=== PATIENT | male | born 1960 | race Caucasian/White ===

== ENCOUNTER 2023-11-01 06:20 | Day surgery (SDC) | payer BC, SELFPAY ==
[2023-10-17 09:22] VITALS: BMI 25.0
[2023-10-17 10:00] LABS: Hematocrit 48.3 % (39.0-52.0); Hemoglobin 16.8 g/dL (13.0-18.0); Mean Corp Hgb Conc. 34.8 g/dL (33.0-37.0); Mean Corpuscular Hgb 34.4 pg (27.0-31.0); Mean Platelet Volume 10.8 fL (7.4-10.4); Platelet Count 190 10^3/uL (130-400); Red Blood Cell Count 4.88 10^6/uL (4.70-6.10); White Blood Cell Count 10.8 10^3/uL (4.8-10.8)
[2023-10-17 10:09] LABS: Blood Urea Nitrogen 18 mg/dl (9-20); Calcium 9.4 mg/dl (8.4-10.2); Carbon Dioxide 27 mmol/L (22-30); Chloride 108 mmol/L (98-107); Estimated Creatinine Clearance 109 ml/min; Glucose 77 mg/dl (70-99); Potassium 4.7 mmol/L (3.5-5.1); Sodium 141 mmol/L (135-145); eGFR > 60.00
[2023-10-17 10:15] LABS: INR 0.94; PT 12.8 Sec (11.4-14.6)
[2023-10-17 10:16] LABS: APTT 30.2 Sec (23.4-35.0)
[2023-10-17 10:22] LABS: Urine Albumin Negative (Neg - Trace); Urine Bilirubin Negative (Negative); Urine Character Clear (Clear); Urine Color Yellow; Urine Glucose Negative (Negative); Urine Ketone Negative (Negative); Urine Leukocyte Negative (Negative); Urine Nitrite Negative (Negative); Urine Occult Blood Negative (Negative); Urine Specific Gravity 1.015 (<1.030); Urine Urobilinogen Negative (Neg - 1+)
[2023-11-01] VITALS (9 sets, daily range): BP systolic 129–159; BP diastolic 79–91; BMI 25.0
[2023-11-01] MEDS: CYSVIEW KIT 100 MG INTRAVES (07:45)
[2023-11-01] MEDS: NORMOSOL-R 1000 IV (08:05)
[2023-11-01] MEDS: Pyridium 200 MG PO (10:16)
--- NOTE | 2023-11-01 11:18 | PTCARENOTE ---
Smoking cessation education done with patient. Patient seems willing to quit but is not ready quite yet. He stated that he needed more time and patient encouraged to quit. Will monitor patient.
== END 2023-11-01 11:16 | disposition home or self-care (01) ==
LOC: SDS 06:20
PROVIDERS: ATTENDING PHYSICIAN Specialist; FAMILY PHYSICIAN Family Medicine; OTHER PHYSICIAN Nurse Practitioner Adult Health
DX: R31.0 Gross hematuria (principal); Z85.51 Personal history of malignant neoplasm of bladder
CPT/HCPCS: 52000; 36415; 80048; 81003; 85027; 85610; 85730; 93005; A9589

== ENCOUNTER → 2023-12-21 11:23 | Outpatient (REF) | payer BC, SELFPAY ==
[2023-12-21 13:12] LABS: Urine Albumin Negative (Neg - Trace); Urine Bilirubin Negative (Negative); Urine Character Clear (Clear); Urine Color Yellow; Urine Glucose Negative (Negative); Urine Ketone Negative (Negative); Urine Leukocyte Trace (Negative); Urine Nitrite Negative (Negative); Urine Occult Blood Negative (Negative); Urine Specific Gravity 1.015 (<1.030); Urine Urobilinogen Negative (Neg - 1+)
[2023-12-21 14:20] LABS: Urine Bacteria Few (Negative); Urine Red Blood Cell 0-2 /HPF (0-2); Urine White Cell 0-2 /HPF (0-5)
== END ==
LOC: REG 11:23
PROVIDERS: ATTENDING PHYSICIAN Specialist; FAMILY PHYSICIAN Nurse Practitioner Adult Health
DX: N39.0 Urinary tract infection, site not specified (principal)
CPT/HCPCS: 81003; 81015; 87086

== ENCOUNTER → 2023-12-27 10:51 | Outpatient (REF) | payer BC, SELFPAY | LOC: HWRAD 10:51 | PROVIDERS: ATTENDING PHYSICIAN Physician Assistant Medical | DX: Z87.891 Personal history of nicotine dependence (principal); Z72.0 Tobacco use | CPT/HCPCS: 71271 ==

== ENCOUNTER → 2024-10-02 08:36 | Outpatient (REF) | payer MEDICARE, BC, SELFPAY ==
[2024-10-02 10:37] LABS: Hematocrit 49.1 % (39.0-52.0); Hemoglobin 17.1 g/dL (13.0-18.0); Mean Corp Hgb Conc. 34.8 g/dL (33.0-37.0); Mean Corpuscular Hgb 34.5 pg (27.0-31.0); Mean Corpuscular Volume 99.2 fL (80.0-94.0); Mean Platelet Volume 11.1 fL (7.4-10.4); Platelet Count 200 10^3/uL (130-400); Red Blood Cell Count 4.95 10^6/uL (4.70-6.10); Red Cell Dist. Width 13.2 % (11.5-14.5); White Blood Cell Count 9.3 10^3/uL (4.8-10.8)
[2024-10-02 12:08] LABS: Blood Urea Nitrogen 16 mg/dl (9-20); Calcium 9.5 mg/dl (8.4-10.2); Carbon Dioxide 28 mmol/L (22-30); Chloride 103 mmol/L (98-107); Glucose 81 mg/dl (70-99); Potassium 4.8 mmol/L (3.5-5.1); Sodium 139 mmol/L (135-145); eGFR > 60.00
== END ==
LOC: SDSPAT 08:36
PROVIDERS: ATTENDING PHYSICIAN Specialist; FAMILY PHYSICIAN Family Medicine
DX: C67.9 Malignant neoplasm of bladder, unspecified (principal); Z01.818 Encounter for other preprocedural examination
CPT/HCPCS: 36415; 80048; 85027; 93005

== ENCOUNTER 2024-10-09 06:50 | Day surgery (SDC) | payer MEDICARE, BC, SELFPAY ==
[2024-10-02 13:32] VITALS: BMI 23.8
--- NOTE | 2024-10-02 14:51 | PTCARENOTE ---
Abn ECG, Dr Palomares notified, no additional interventions requested.
[2024-10-09] VITALS (9 sets, daily range): BP systolic 121–145; BP diastolic 63–94; BMI 23.8
[2024-10-09] MEDS: NORMOSOL-R/PLASMALYTE-A 1000 IV (07:51)
[2024-10-09] MEDS: CYSVIEW KIT 100 MG INTRAVES (07:56)
[2024-10-09] MEDS: VALIUM INJECTION 5 MG IV (11:05)
[2024-10-09] MEDS: Pyridium 200 MG PO (11:05)
== END 2024-10-09 12:06 | disposition home or self-care (01) ==
LOC: SDS 06:50
PROVIDERS: ATTENDING PHYSICIAN Specialist
DX: C67.9 Malignant neoplasm of bladder, unspecified (principal)
CPT/HCPCS: 52235; 88307; A9589

== ENCOUNTER → 2025-01-06 13:14 | Outpatient (REF) | payer MEDICARE, BC, SELFPAY ==
[2025-01-06 15:18] LABS: Blood Urea Nitrogen 20 mg/dl (9-20); Carbon Dioxide 26 mmol/L (22-30); Chloride 107 mmol/L (98-107); Glucose 83 mg/dl (70-99); Sodium 143 mmol/L (135-145); eGFR > 60.00
== END ==
LOC: REG 13:14
PROVIDERS: ATTENDING PHYSICIAN Specialist; FAMILY PHYSICIAN Physician Assistant Medical
DX: C67.9 Malignant neoplasm of bladder, unspecified (principal)
CPT/HCPCS: 36415; 80048

== ENCOUNTER → 2025-01-09 11:18 | Outpatient (REF) | payer MEDICARE, BC, SELFPAY | LOC: RAD 11:18 | PROVIDERS: ATTENDING PHYSICIAN Specialist; FAMILY PHYSICIAN Physician Assistant Medical | DX: C67.2 Malignant neoplasm of lateral wall of bladder (principal) | CPT/HCPCS: 74178; Q9967 ==

== ENCOUNTER → 2025-05-26 09:47 | Outpatient (REF) | payer MEDICARE, BC, SELFPAY ==
[2025-05-26 10:32] LABS: Hematocrit 48.0 % (39.0-52.0); Hemoglobin 16.7 g/dL (13.0-18.0); Mean Corp Hgb Conc. 34.8 g/dL (33.0-37.0); Mean Corpuscular Volume 98.8 fL (80.0-94.0); Platelet Count 175 10^3/uL (130-400); Red Cell Dist. Width 13.3 % (11.5-14.5)
[2025-05-26 11:10] LABS: Blood Urea Nitrogen 17 mg/dl (9-20); Calcium 9.9 mg/dl (8.4-10.2); Carbon Dioxide 26 mmol/L (22-30); Chloride 110 mmol/L (98-107); Glucose 84 mg/dl (70-99); Potassium 4.7 mmol/L (3.5-5.1); Sodium 141 mmol/L (135-145); eGFR > 60.00
== END ==
LOC: SDSPAT 09:47
PROVIDERS: ATTENDING PHYSICIAN Specialist; FAMILY PHYSICIAN Physician Assistant Medical
DX: Z01.818 Encounter for other preprocedural examination (principal)
CPT/HCPCS: 36415; 80048; 85027; 93005

== ENCOUNTER → 2025-05-26 11:22 | Outpatient (REF) | payer MEDICARE, BC, SELFPAY | LOC: CLAB 11:22 | PROVIDERS: ATTENDING PHYSICIAN Specialist | DX: C67.0 Malignant neoplasm of trigone of bladder (principal) | CPT/HCPCS: 88112 ==

== ENCOUNTER 2025-06-02 06:22 | Day surgery (SDC) | payer MEDICARE, BC, SELFPAY ==
[2025-05-26 14:14] VITALS: BMI 23.5
[2025-06-02] VITALS (7 sets, daily range): BP systolic 127–195; BP diastolic 70–96; BMI 23.5
[2025-06-02] MEDS: CYSVIEW KIT 100 MG INTRAVES (13:55)
[2025-06-02] MEDS: NORMOSOL-R/PLASMALYTE-A 1000 IV (13:58)
== END 2025-06-02 18:25 | disposition home or self-care (01) ==
LOC: SDS 06:22
PROVIDERS: ATTENDING PHYSICIAN Specialist; FAMILY PHYSICIAN Physician Assistant Medical
DX: C67.0 Malignant neoplasm of trigone of bladder (principal)
CPT/HCPCS: 52000; C9738; A9589